=== PATIENT | female | born 1945 | race Caucasian/White ===

== ENCOUNTER 2022-09-22 20:07 | Observation (INO) | payer MEDICAID, MEDICARE, SELFPAY ==
[~2022-09-22] VITALS: Ht 170.2 cm; Wt 62.6 kg
[2022-09-22] MEDS ORDERED: NS 500 ML IV ONE (21:35)
[2022-09-22] MEDS ORDERED: METOPROLOL 5 MG/5 ML VIAL IV SCH (21:35)
[2022-09-22] MEDS ORDERED: METOPROLOL TART 25 MG TABLET PO ONE (21:35)
[2022-09-22 22:08] LABS: BASO % 0.3 % (0.0-1.0); EOS # 0.1 10^3/uL (0.0-0.5); EOS % 0.9 % (0.0-3.0); HEMATOCRIT 43.9 % (36.0-47.0); HEMOGLOBIN 14.7 g/dl (12.0-15.5); LYMPH # 2.8 10^3/uL (1.5-5.0); LYMPH % 29.2 % (24.0-44.0); MEAN CORPUSCULAR HEMOGLOBIN 30.4 pg (27.0-33.0); MEAN CORPUSCULAR HGB CONC 33.5 g/dl (32.0-36.5); MEAN CORPUSCULAR VOLUME 90.9 fl (80.0-96.0); MONO # 0.6 10^3/uL (0.0-0.8); MONO % 5.9 % (2.0-8.0); NEUTROPHILS % 63.5 % (36.0-66.0); PLATELET COUNT, AUTOMATED 255 10^3/uL (150-450); RED BLOOD COUNT 4.83 10^6/uL (4.00-5.40); WHITE BLOOD COUNT 9.5 10^3/uL (4.0-10.0)
[2022-09-22 22:23] LABS: CK-MB VALUE MASS 1.9 NG/ML (<3.6); ETHYL ALCOHOL (ETHANOL) < 0.003 % (0.000-0.010)
[2022-09-22 22:25] LABS: ALBUMIN 4.2 G/DL (3.2-5.2); ALKALINE PHOSPHATASE 81 U/L (46-116); ALT/SGPT 10 U/L (7.0-40); AST/SGOT 19 U/L (<34); BILIRUBIN,DIRECT 0.1 MG/DL (<0.4); BILIRUBIN,TOTAL 0.5 MG/DL (0.3-1.2); BLOOD UREA NITROGEN 14 MG/DL (9-23); CARBON DIOXIDE LEVEL 27 MMOL/L (20-31); CHLORIDE LEVEL 107 MMOL/L (98-107); CREATININE FOR GFR 0.88 MG/DL (0.55-1.30); GLOMERULAR FILTRATION RATE > 60.0 (>39); GLUCOSE, FASTING 106 MG/DL (74-106); POTASSIUM SERUM 3.4 MMOL/L (3.5-5.1); SODIUM LEVEL 142 MMOL/L (136-145); TOTAL PROTEIN 7.2 G/DL (5.7-8.2)
[2022-09-22 22:27] LABS: THYROID STIMULATING HORMONE 0.817 uIU/ML (0.55-4.78)
[2022-09-22 22:37] LABS: CPK CREATINE PHOSPHOKINASE 96 U/L (34-145); MB/CK RELATIVE INDEX 1.97 (< OR =4)
[2022-09-22 23:40] LABS: RSV AMPLIFICATION NEGATIVE (NEGATIVE)
[2022-09-22] MEDS ORDERED: AMLO2.5T3 PO (23:48)
[2022-09-22] MEDS ORDERED: POTA1TAB23 PO (23:48)
[2022-09-22] MEDS ORDERED: DONE5TAB82 PO (23:48)
[2022-09-22] MEDS ORDERED: SPIR-10 PO (23:48)
[2022-09-22] MEDS ORDERED: ATOR40TA75 PO (23:48)
[2022-09-22] MEDS ORDERED: LOSA50TA5 PO (23:48)
[2022-09-22] MEDS ORDERED: LABE300T55 PO (23:48)
[2022-09-22] MEDS ORDERED: CLON-412 PO (23:48)
[2022-09-22] MEDS ORDERED: HOME MED LIST COMPLETE! XX SCH (23:50)
[2022-09-23] MEDS ORDERED: amLODIPine 5 MG TAB PO ONE
[2022-09-23] MEDS: cloNIDine 0.1MG TABLET PO SCH ×3 (00:26→20:47)
[2022-09-23] MEDS ORDERED: cloNIDine 0.1MG TABLET PO ONE (01:05)
[2022-09-23] MEDS ORDERED: LOSARTAN 50MG TABLET PO SCH (09:00)
[2022-09-23] MEDS ORDERED: hydroCHLOROthiazide 12.5 MG CAPSULE PO SCH (09:00)
[2022-09-23] MEDS: ENOXAPARIN 40MG/0.4ML SYRINGE (J1650 PER 10MG) SC SCH (09:09)
[2022-09-23] MEDS: SPIRONOLACTONE 25 MG TAB PO SCH ×2 (09:12→20:46)
[2022-09-23] MEDS: LABETALOL 100MG TAB PO SCH ×2 (09:19→20:48)
[2022-09-23] MEDS ORDERED: OLANZapine INTRAMUSCULAR 10MG VIAL IM ONE ×2 (11:00→14:05)
[2022-09-23] MEDS: LOSARTAN 50MG TABLET PO SCH (12:00)
[2022-09-23] MEDS ORDERED: diphenhydrAMINE 50MG/ML VIAL IV ONE (12:30)
[2022-09-23 13:54] VITALS: BP 140/75; TEMP 97; O2SAT 98
[2022-09-23] MEDS ORDERED: diphenhydrAMINE 50MG/ML VIAL IM ONE (14:05)
[2022-09-23] MEDS ORDERED: POTASSIUM CHLORIDE 10% LIQ 20MEQ/15ML UDC PO ONE (15:00)
[2022-09-23 16:58] VITALS: BP 107/53; TEMP 97.6; O2SAT 98
[2022-09-23 20:00] VITALS: BP 104/60; TEMP 97.6; O2SAT 97
[2022-09-23] MEDS: ATORVASTATIN 20 MG TAB PO SCH (20:49)
[2022-09-23] MEDS: DONEPEZIL 5 MG TAB PO SCH (20:49)
[2022-09-24] VITALS: BP 112/58; TEMP 97.3; O2SAT 95
[2022-09-24 08:09] VITALS: BP 139/59; TEMP 97.5; O2SAT 93
[2022-09-24] MEDS: cloNIDine 0.1MG TABLET PO SCH ×2 (08:21→20:15)
[2022-09-24] MEDS: LABETALOL 100MG TAB PO SCH ×2 (08:22→20:14)
[2022-09-24] MEDS: ENOXAPARIN 40MG/0.4ML SYRINGE (J1650 PER 10MG) SC SCH (08:28)
[2022-09-24] MEDS: SPIRONOLACTONE 25 MG TAB PO SCH ×3 (08:30→20:15)
[2022-09-24] MEDS: QUEtiapine FUMARATE 25 MG TAB PO SCH ×3 (08:30→20:15)
[2022-09-24] MEDS ORDERED: OLANZapine 5 MG TAB PO SCH (09:00)
[2022-09-24] MEDS ORDERED: OLANZapine INTRAMUSCULAR 10MG VIAL IM ONE (09:55)
[2022-09-24 12:00] VITALS: BP 136/62; TEMP 98.6; O2SAT 97
[2022-09-24] MEDS: LOSARTAN 50MG TABLET PO SCH (12:00)
[2022-09-24 20:00] VITALS: BP 194/88; TEMP 97.2; O2SAT 97
[2022-09-24] MEDS: ATORVASTATIN 20 MG TAB PO SCH (20:13)
[2022-09-24] MEDS: DONEPEZIL 5 MG TAB PO SCH (20:15)
[2022-09-25 04:00] VITALS: BP 153/69; TEMP 98.4; O2SAT 95
[2022-09-25 08:00] VITALS: BP 189/84; TEMP 98.9; O2SAT 99
[2022-09-25] MEDS: SPIRONOLACTONE 25 MG TAB PO SCH ×2 (08:28→21:23)
[2022-09-25] MEDS: QUEtiapine FUMARATE 25 MG TAB PO SCH ×3 (08:29→21:23)
[2022-09-25] MEDS: LABETALOL 100MG TAB PO SCH ×2 (08:29→21:24)
[2022-09-25] MEDS: cloNIDine 0.1MG TABLET PO SCH ×2 (08:29→21:23)
[2022-09-25] MEDS: ENOXAPARIN 40MG/0.4ML SYRINGE (J1650 PER 10MG) SC SCH (08:29)
[2022-09-25] MEDS: OLANZapine INTRAMUSCULAR 10MG VIAL IM PRN (10:40)
[2022-09-25] MEDS: LOSARTAN 50MG TABLET PO SCH (12:32)
[2022-09-25 19:49] VITALS: BP 180/80; TEMP 96.2; O2SAT 97
[2022-09-25 20:05] VITALS: BP 180/80; TEMP 97; O2SAT 98
[2022-09-25 21:20] VITALS: BP 168/81
[2022-09-25] MEDS: DONEPEZIL 5 MG TAB PO SCH (21:23)
[2022-09-26] MEDS: QUEtiapine FUMARATE 25 MG TAB PO SCH ×4 (09:00→21:28)
[2022-09-26] MEDS: SPIRONOLACTONE 25 MG TAB PO SCH ×3 (09:00→21:28)
[2022-09-26] MEDS: cloNIDine 0.1MG TABLET PO SCH ×3 (09:00→21:28)
[2022-09-26] MEDS: LABETALOL 100MG TAB PO SCH ×3 (09:00→21:00)
[2022-09-26] MEDS: ENOXAPARIN 40MG/0.4ML SYRINGE (J1650 PER 10MG) SC SCH (09:51)
[2022-09-26] MEDS: LOSARTAN 50MG TABLET PO SCH (13:39)
[2022-09-26 15:35] VITALS: BP 145/69; TEMP 98.4; O2SAT 96
[2022-09-26 20:41] VITALS: BP 169/74; TEMP 98.1; O2SAT 95
[2022-09-26] MEDS: DONEPEZIL 5 MG TAB PO SCH (21:29)
[2022-09-27 07:19] VITALS: BP 144/71; TEMP 97.9; O2SAT 96
[2022-09-27] MEDS: ENOXAPARIN 40MG/0.4ML SYRINGE (J1650 PER 10MG) SC SCH (09:00)
[2022-09-27] MEDS: cloNIDine 0.1MG TABLET PO SCH ×2 (09:00→20:37)
[2022-09-27] MEDS: QUEtiapine FUMARATE 25 MG TAB PO SCH ×3 (09:00→20:37)
[2022-09-27] MEDS: LABETALOL 100MG TAB PO SCH ×2 (09:00→20:38)
[2022-09-27] MEDS: SPIRONOLACTONE 25 MG TAB PO SCH ×2 (09:00→20:37)
[2022-09-27] MEDS: LOSARTAN 50MG TABLET PO SCH (12:25)
[2022-09-27] MEDS: DONEPEZIL 5 MG TAB PO SCH (20:37)
[2022-09-27 21:30] VITALS: TEMP 98.4; O2SAT 97
[2022-09-27 22:30] VITALS: BP 155/63; TEMP 97.9; O2SAT 94
[2022-09-28] MEDS: ACETAMINOPHEN TAB 650MG DOSE (2X325MG) PO PRN (03:00)
[2022-09-28 06:10] VITALS: BP 141/59; TEMP 97.7; O2SAT 97
[2022-09-28] MEDS: LABETALOL 100MG TAB PO SCH ×2 (09:00→23:04)
[2022-09-28] MEDS: cloNIDine 0.1MG TABLET PO SCH ×2 (09:00→23:03)
[2022-09-28] MEDS: QUEtiapine FUMARATE 25 MG TAB PO SCH ×3 (09:00→23:04)
[2022-09-28] MEDS: SPIRONOLACTONE 25 MG TAB PO SCH ×2 (09:00→23:03)
[2022-09-28] MEDS: ENOXAPARIN 40MG/0.4ML SYRINGE (J1650 PER 10MG) SC SCH (09:00)
[2022-09-28] MEDS: LOSARTAN 50MG TABLET PO SCH (12:37)
[2022-09-28] MEDS: OLANZapine INTRAMUSCULAR 10MG VIAL IM PRN (14:42)
[2022-09-28 21:00] VITALS: BP 178/81
[2022-09-28] MEDS: DONEPEZIL 5 MG TAB PO SCH (23:03)
[2022-09-29 06:30] VITALS: BP 124/63; TEMP 97.9; O2SAT 97
[2022-09-29] MEDS: QUEtiapine FUMARATE 25 MG TAB PO SCH ×3 (09:00→20:09)
[2022-09-29] MEDS: ENOXAPARIN 40MG/0.4ML SYRINGE (J1650 PER 10MG) SC SCH (09:00)
[2022-09-29] MEDS: cloNIDine 0.1MG TABLET PO SCH ×2 (09:00→20:15)
[2022-09-29] MEDS: LABETALOL 100MG TAB PO SCH ×2 (09:00→20:15)
[2022-09-29] MEDS: SPIRONOLACTONE 25 MG TAB PO SCH ×2 (09:00→20:09)
[2022-09-29] MEDS: LOSARTAN 50MG TABLET PO SCH (12:00)
[2022-09-29] MEDS: DONEPEZIL 5 MG TAB PO SCH (20:09)
[2022-09-29] MEDS: ACETAMINOPHEN TAB 650MG DOSE (2X325MG) PO PRN (22:04)
[2022-09-30] MEDS: ENOXAPARIN 40MG/0.4ML SYRINGE (J1650 PER 10MG) SC SCH (09:00)
[2022-09-30] MEDS: SPIRONOLACTONE 25 MG TAB PO SCH ×2 (10:39→21:34)
[2022-09-30] MEDS: cloNIDine 0.1MG TABLET PO SCH ×2 (10:40→21:00)
[2022-09-30] MEDS: QUEtiapine FUMARATE 25 MG TAB PO SCH ×3 (10:40→21:34)
[2022-09-30] MEDS: LABETALOL 100MG TAB PO SCH ×2 (10:42→21:00)
[2022-09-30] MEDS: LOSARTAN 50MG TABLET PO SCH (13:30)
[2022-09-30] MEDS: DONEPEZIL 5 MG TAB PO SCH (21:00)
[2022-09-30 22:00] VITALS: BP 175/89; TEMP 97.7; O2SAT 94
[2022-10-01] MEDS: LABETALOL 100MG TAB PO SCH ×2 (08:47→21:00)
[2022-10-01] MEDS: QUEtiapine FUMARATE 25 MG TAB PO SCH ×3 (08:48→21:00)
[2022-10-01] MEDS: ENOXAPARIN 40MG/0.4ML SYRINGE (J1650 PER 10MG) SC SCH (08:48)
[2022-10-01] MEDS: cloNIDine 0.1MG TABLET PO SCH ×2 (08:48→21:00)
[2022-10-01] MEDS: SPIRONOLACTONE 25 MG TAB PO SCH ×2 (08:48→21:00)
[2022-10-01] MEDS: LOSARTAN 50MG TABLET PO SCH (12:00)
[2022-10-01] MEDS: DONEPEZIL 5 MG TAB PO SCH (21:00)
[2022-10-02] MEDS: SPIRONOLACTONE 25 MG TAB PO SCH ×3 (08:12→21:00)
[2022-10-02] MEDS: ENOXAPARIN 40MG/0.4ML SYRINGE (J1650 PER 10MG) SC SCH (08:12)
[2022-10-02] MEDS: cloNIDine 0.1MG TABLET PO SCH ×3 (08:12→21:00)
[2022-10-02] MEDS: QUEtiapine FUMARATE 25 MG TAB PO SCH ×4 (08:12→21:00)
[2022-10-02] MEDS: LABETALOL 100MG TAB PO SCH ×2 (08:12→19:17)
[2022-10-02 08:30] VITALS: BP 153/70; TEMP 97.8
[2022-10-02] MEDS: LOSARTAN 50MG TABLET PO SCH (14:01)
[2022-10-02 14:13] VITALS: BP 140/65
[2022-10-02] MEDS: DONEPEZIL 5 MG TAB PO SCH (19:16)
[2022-10-03 06:00] VITALS: BP 155/72; TEMP 97.7; O2SAT 93
[2022-10-03] MEDS: LABETALOL 100MG TAB PO SCH ×2 (07:10→21:00)
[2022-10-03] MEDS: cloNIDine 0.1MG TABLET PO SCH ×3 (07:10→21:56)
[2022-10-03] MEDS: SPIRONOLACTONE 25 MG TAB PO SCH ×3 (07:11→21:57)
[2022-10-03] MEDS: ENOXAPARIN 40MG/0.4ML SYRINGE (J1650 PER 10MG) SC SCH (07:11)
[2022-10-03] MEDS: QUEtiapine FUMARATE 25 MG TAB PO SCH ×4 (07:11→21:56)
[2022-10-03] MEDS: LOSARTAN 50MG TABLET PO SCH (12:00)
[2022-10-03] MEDS: DONEPEZIL 5 MG TAB PO SCH ×2 (21:00→21:56)
[2022-10-03 21:54] VITALS: BP 167/82
[2022-10-04 05:51] VITALS: BP 139/65; TEMP 97.2; O2SAT 98
[2022-10-04] MEDS: cloNIDine 0.1MG TABLET PO SCH ×2 (07:59→21:00)
[2022-10-04] MEDS: LABETALOL 100MG TAB PO SCH ×2 (08:00→21:00)
[2022-10-04] MEDS: SPIRONOLACTONE 25 MG TAB PO SCH ×2 (08:00→21:00)
[2022-10-04] MEDS: QUEtiapine FUMARATE 25 MG TAB PO SCH ×3 (08:00→20:59)
[2022-10-04] MEDS: ENOXAPARIN 40MG/0.4ML SYRINGE (J1650 PER 10MG) SC SCH (08:04)
[2022-10-04] MEDS: LOSARTAN 50MG TABLET PO SCH (12:00)
[2022-10-04 12:16] VITALS: BP 138/62
[2022-10-04] MEDS: DONEPEZIL 5 MG TAB PO SCH (20:59)
[2022-10-05 06:35] VITALS: BP 140/62; TEMP 98.1; O2SAT 96
[2022-10-05] MEDS: cloNIDine 0.1MG TABLET PO SCH ×2 (08:49→19:42)
[2022-10-05] MEDS: QUEtiapine FUMARATE 25 MG TAB PO SCH ×3 (08:49→19:41)
[2022-10-05] MEDS: SPIRONOLACTONE 25 MG TAB PO SCH ×2 (08:50→19:41)
[2022-10-05] MEDS: LABETALOL 100MG TAB PO SCH ×2 (08:52→19:42)
[2022-10-05] MEDS: ENOXAPARIN 40MG/0.4ML SYRINGE (J1650 PER 10MG) SC SCH (08:54)
[2022-10-05] MEDS: LOSARTAN 50MG TABLET PO SCH (12:00)
[2022-10-05 12:16] VITALS: BP 116/54
[2022-10-05] MEDS: DONEPEZIL 5 MG TAB PO SCH (19:41)
[2022-10-06 05:31] VITALS: BP 139/60; TEMP 97.7; O2SAT 98
[2022-10-06] MEDS: cloNIDine 0.1MG TABLET PO SCH ×2 (09:00→20:58)
[2022-10-06] MEDS: QUEtiapine FUMARATE 25 MG TAB PO SCH ×3 (09:02→20:58)
[2022-10-06] MEDS: SPIRONOLACTONE 25 MG TAB PO SCH ×2 (09:02→20:59)
[2022-10-06] MEDS: LABETALOL 100MG TAB PO SCH ×2 (09:03→20:59)
[2022-10-06] MEDS: ENOXAPARIN 40MG/0.4ML SYRINGE (J1650 PER 10MG) SC SCH (09:03)
[2022-10-06] MEDS: LOSARTAN 50MG TABLET PO SCH (12:00)
[2022-10-06] MEDS: DONEPEZIL 5 MG TAB PO SCH (21:00)
[2022-10-07 06:00] VITALS: BP 115/49; TEMP 97.3; O2SAT 94
[2022-10-07] MEDS: cloNIDine 0.1MG TABLET PO SCH (08:29)
[2022-10-07] MEDS: SPIRONOLACTONE 25 MG TAB PO SCH ×2 (08:29→21:23)
[2022-10-07] MEDS: LABETALOL 100MG TAB PO SCH ×2 (08:30→21:22)
[2022-10-07] MEDS: ENOXAPARIN 40MG/0.4ML SYRINGE (J1650 PER 10MG) SC SCH (08:31)
[2022-10-07] MEDS: QUEtiapine FUMARATE 25 MG TAB PO SCH ×3 (08:34→21:22)
[2022-10-07] MEDS: LOSARTAN 50MG TABLET PO SCH (11:11)
[2022-10-07] MEDS: DONEPEZIL 5 MG TAB PO SCH (21:22)
[2022-10-08 05:04] VITALS: BP 144/60; TEMP 97.9; O2SAT 96
[2022-10-08] MEDS: ENOXAPARIN 40MG/0.4ML SYRINGE (J1650 PER 10MG) SC SCH (09:00)
[2022-10-08] MEDS: LOSARTAN 50MG TABLET PO SCH (10:17)
[2022-10-08] MEDS: LABETALOL 100MG TAB PO SCH ×2 (10:18→20:02)
[2022-10-08] MEDS: SPIRONOLACTONE 25 MG TAB PO SCH ×2 (10:18→20:01)
[2022-10-08] MEDS: QUEtiapine FUMARATE 25 MG TAB PO SCH ×3 (10:18→20:01)
[2022-10-08 19:52] VITALS: BP 175/81; O2SAT 98
[2022-10-08] MEDS: DONEPEZIL 5 MG TAB PO SCH (20:01)
[2022-10-09 06:00] VITALS: BP 184/81; TEMP 97.7; O2SAT 97
[2022-10-09] MEDS: LABETALOL 100MG TAB PO SCH ×2 (09:55→19:54)
[2022-10-09] MEDS: ENOXAPARIN 40MG/0.4ML SYRINGE (J1650 PER 10MG) SC SCH (09:55)
[2022-10-09] MEDS: QUEtiapine FUMARATE 25 MG TAB PO SCH ×3 (09:55→19:53)
[2022-10-09] MEDS: SPIRONOLACTONE 25 MG TAB PO SCH ×2 (09:55→19:54)
[2022-10-09] MEDS: LOSARTAN 50MG TABLET PO SCH (16:34)
[2022-10-09] MEDS: DONEPEZIL 5 MG TAB PO SCH (19:53)
[2022-10-10 04:00] VITALS: BP 147/78; TEMP 97.5; O2SAT 99
[2022-10-10] MEDS: SPIRONOLACTONE 25 MG TAB PO SCH ×2 (09:06→20:31)
[2022-10-10] MEDS: QUEtiapine FUMARATE 25 MG TAB PO SCH ×3 (09:06→20:30)
[2022-10-10] MEDS: LABETALOL 100MG TAB PO SCH ×2 (09:06→19:58)
[2022-10-10] MEDS: ENOXAPARIN 40MG/0.4ML SYRINGE (J1650 PER 10MG) SC SCH (09:07)
[2022-10-10] MEDS: LOSARTAN 50MG TABLET PO SCH (12:11)
[2022-10-10] MEDS: OLANZapine INTRAMUSCULAR 10MG VIAL IM PRN (16:28)
[2022-10-10] MEDS: DONEPEZIL 5 MG TAB PO SCH (20:30)
[2022-10-11 06:00] VITALS: BP 142/65; TEMP 97.9; O2SAT 95
[2022-10-11] MEDS: SPIRONOLACTONE 25 MG TAB PO SCH ×2 (08:39→19:30)
[2022-10-11] MEDS: LABETALOL 100MG TAB PO SCH ×2 (08:40→19:30)
[2022-10-11] MEDS: QUEtiapine FUMARATE 25 MG TAB PO SCH ×3 (08:40→17:12)
[2022-10-11] MEDS: ENOXAPARIN 40MG/0.4ML SYRINGE (J1650 PER 10MG) SC SCH (08:41)
[2022-10-11] MEDS: LOSARTAN 50MG TABLET PO SCH (12:08)
[2022-10-11] MEDS: DONEPEZIL 5 MG TAB PO SCH (19:30)
[2022-10-12 06:30] VITALS: BP 144/64; TEMP 97.9; O2SAT 99
[2022-10-12] MEDS: SPIRONOLACTONE 25 MG TAB PO SCH ×2 (08:36→11:23)
[2022-10-12] MEDS: LABETALOL 100MG TAB PO SCH ×2 (08:37→19:54)
[2022-10-12] MEDS: ENOXAPARIN 40MG/0.4ML SYRINGE (J1650 PER 10MG) SC SCH (08:37)
[2022-10-12] MEDS: QUEtiapine FUMARATE 25 MG TAB PO SCH ×3 (08:37→17:45)
[2022-10-12] MEDS: LOSARTAN 50MG TABLET PO SCH (11:21)
[2022-10-12] MEDS: DONEPEZIL 5 MG TAB PO SCH (17:46)
[2022-10-13] MEDS ORDERED: QUET1TAB17 PO (08:31)
[2022-10-13] MEDS: QUEtiapine FUMARATE 25 MG TAB PO SCH ×2 (08:34→17:09)
[2022-10-13] MEDS: ENOXAPARIN 40MG/0.4ML SYRINGE (J1650 PER 10MG) SC SCH (08:35)
[2022-10-13] MEDS: SPIRONOLACTONE 25 MG TAB PO SCH ×2 (08:35→21:49)
[2022-10-13] MEDS: LABETALOL 100MG TAB PO SCH ×2 (08:36→21:49)
[2022-10-13] MEDS: OLANZapine INTRAMUSCULAR 10MG VIAL IM PRN (09:20)
[2022-10-13] MEDS: LOSARTAN 50MG TABLET PO SCH (11:38)
[2022-10-13] MEDS: DONEPEZIL 5 MG TAB PO SCH (21:49)
[2022-10-14] MEDS: QUEtiapine FUMARATE 25 MG TAB PO SCH ×2 (08:38→17:13)
[2022-10-14] MEDS: LABETALOL 100MG TAB PO SCH ×2 (08:39→20:33)
[2022-10-14] MEDS: ENOXAPARIN 40MG/0.4ML SYRINGE (J1650 PER 10MG) SC SCH (08:40)
[2022-10-14] MEDS: SPIRONOLACTONE 25 MG TAB PO SCH ×2 (08:40→20:33)
[2022-10-14] MEDS: LOSARTAN 50MG TABLET PO SCH (13:18)
[2022-10-14 20:32] VITALS: BP 143/67
[2022-10-14] MEDS: DONEPEZIL 5 MG TAB PO SCH (20:33)
[2022-10-14 20:39] VITALS: BP 155/61
[2022-10-15 06:00] VITALS: BP 142/63; TEMP 97.7; O2SAT 96
[2022-10-15] MEDS: ENOXAPARIN 40MG/0.4ML SYRINGE (J1650 PER 10MG) SC SCH (09:00)
[2022-10-15] MEDS: QUEtiapine FUMARATE 25 MG TAB PO SCH ×2 (09:38→17:52)
[2022-10-15] MEDS: SPIRONOLACTONE 25 MG TAB PO SCH ×2 (09:38→20:08)
[2022-10-15] MEDS: LABETALOL 100MG TAB PO SCH ×2 (09:39→20:07)
[2022-10-15] MEDS: LOSARTAN 50MG TABLET PO SCH (11:50)
[2022-10-15] MEDS ORDERED: guaiFENesin SYRUP 200MG 10ML UDC PO PRN (12:00)
[2022-10-15] MEDS ORDERED: CEPACOL LOZENGE PO PRN (12:00)
[2022-10-15 17:01] VITALS: TEMP 101.7
[2022-10-15 17:06] VITALS: TEMP 101.3
[2022-10-15 20:07] LABS: BASO % 0.1 % (0.0-1.0); EOS % 0.3 % (0.0-3.0); HEMATOCRIT 41.1 % (36.0-47.0); HEMOGLOBIN 13.5 g/dl (12.0-15.5); LYMPH # 1.4 10^3/uL (1.5-5.0); LYMPH % 14.8 % (24.0-44.0); MEAN CORPUSCULAR HEMOGLOBIN 30.7 pg (27.0-33.0); MEAN CORPUSCULAR HGB CONC 32.8 g/dl (32.0-36.5); MEAN CORPUSCULAR VOLUME 93.4 fl (80.0-96.0); MONO # 0.8 10^3/uL (0.0-0.8); MONO % 8.1 % (2.0-8.0); NEUTROPHILS # 7.1 10^3/uL (1.5-8.5); NEUTROPHILS % 76.3 % (36.0-66.0); PLATELET COUNT, AUTOMATED 217 10^3/uL (150-450); WHITE BLOOD COUNT 9.3 10^3/uL (4.0-10.0)
[2022-10-15] MEDS: ACETAMINOPHEN TAB 650MG DOSE (2X325MG) PO PRN (20:07)
[2022-10-15] MEDS: DONEPEZIL 5 MG TAB PO SCH (20:08)
[2022-10-15 20:30] LABS: ALBUMIN 3.6 G/DL (3.2-5.2); ALKALINE PHOSPHATASE 137 U/L (46-116); ALT/SGPT 14 U/L (7.0-40); AST/SGOT 12 U/L (<34); BILIRUBIN,TOTAL 0.5 MG/DL (0.3-1.2); BLOOD UREA NITROGEN 28 MG/DL (9-23); CALCIUM LEVEL 9.1 MG/DL (8.3-10.6); CARBON DIOXIDE LEVEL 29 MMOL/L (20-31); CHLORIDE LEVEL 99 MMOL/L (98-107); CREATININE FOR GFR 0.85 MG/DL (0.55-1.30); GLOMERULAR FILTRATION RATE > 60.0 (>39); GLUCOSE, FASTING 107 MG/DL (74-106); POTASSIUM SERUM 4.3 MMOL/L (3.5-5.1); SODIUM LEVEL 137 MMOL/L (136-145); TOTAL PROTEIN 6.9 G/DL (5.7-8.2)
[2022-10-15 20:36] LABS: PROCALCITONIN 0.06 ng/ml
[2022-10-15 21:50] VITALS: TEMP 99.3
[2022-10-16 06:00] VITALS: BP 131/53; TEMP 98.1; O2SAT 96
[2022-10-16] MEDS: QUEtiapine FUMARATE 25 MG TAB PO SCH ×2 (08:20→17:10)
[2022-10-16] MEDS: LABETALOL 100MG TAB PO SCH ×2 (08:21→20:10)
[2022-10-16] MEDS: SPIRONOLACTONE 25 MG TAB PO SCH ×2 (08:21→20:11)
[2022-10-16] MEDS: ENOXAPARIN 40MG/0.4ML SYRINGE (J1650 PER 10MG) SC SCH (08:21)
[2022-10-16] MEDS: LOSARTAN 50MG TABLET PO SCH (11:33)
[2022-10-16] MEDS: LevoFLOXacin 750 MG TABLET PO SCH (17:10)
[2022-10-16 20:09] VITALS: BP 124/52; TEMP 97.9
[2022-10-16] MEDS: DONEPEZIL 5 MG TAB PO SCH (20:10)
[2022-10-17 05:47] VITALS: BP 121/52; TEMP 97.9; O2SAT 98
[2022-10-17 05:58] LABS: BASO % 0.2 % (0.0-1.0); EOS # 0.1 10^3/uL (0.0-0.5); HEMATOCRIT 38.7 % (36.0-47.0); HEMOGLOBIN 12.9 g/dl (12.0-15.5); LYMPH # 2.1 10^3/uL (1.5-5.0); LYMPH % 36.3 % (24.0-44.0); MEAN CORPUSCULAR HEMOGLOBIN 30.8 pg (27.0-33.0); MEAN CORPUSCULAR HGB CONC 33.3 g/dl (32.0-36.5); MEAN CORPUSCULAR VOLUME 92.4 fl (80.0-96.0); MONO # 0.5 10^3/uL (0.0-0.8); MONO % 9.2 % (2.0-8.0); NEUTROPHILS # 3.1 10^3/uL (1.5-8.5); PLATELET COUNT, AUTOMATED 199 10^3/uL (150-450); RED BLOOD COUNT 4.19 10^6/uL (4.00-5.40); WHITE BLOOD COUNT 5.8 10^3/uL (4.0-10.0)
[2022-10-17 06:25] LABS: BLOOD UREA NITROGEN 30 MG/DL (9-23); CALCIUM LEVEL 8.9 MG/DL (8.3-10.6); CARBON DIOXIDE LEVEL 27 MMOL/L (20-31); CHLORIDE LEVEL 102 MMOL/L (98-107); CREATININE FOR GFR 0.82 MG/DL (0.55-1.30); GLOMERULAR FILTRATION RATE > 60.0 (>39); GLUCOSE, FASTING 94 MG/DL (74-106); MAGNESIUM LEVEL 1.8 MG/DL (1.8-2.4); SODIUM LEVEL 139 MMOL/L (136-145)
[2022-10-17 06:31] LABS: PROCALCITONIN 0.15 ng/ml
[2022-10-17] MEDS: SPIRONOLACTONE 25 MG TAB PO SCH ×2 (08:53→21:00)
[2022-10-17] MEDS: QUEtiapine FUMARATE 25 MG TAB PO SCH ×2 (08:53→17:00)
[2022-10-17] MEDS: ENOXAPARIN 40MG/0.4ML SYRINGE (J1650 PER 10MG) SC SCH (08:53)
[2022-10-17] MEDS: LABETALOL 100MG TAB PO SCH ×2 (08:54→21:00)
[2022-10-17] MEDS: LOSARTAN 50MG TABLET PO SCH (11:20)
[2022-10-17] MEDS: LevoFLOXacin 750 MG TABLET PO SCH (17:00)
[2022-10-17] MEDS: DONEPEZIL 5 MG TAB PO SCH (21:00)
[2022-10-18 05:40] VITALS: BP 166/75; TEMP 97.2; O2SAT 94
[2022-10-18] MEDS: ENOXAPARIN 40MG/0.4ML SYRINGE (J1650 PER 10MG) SC SCH (09:00)
[2022-10-18] MEDS: SPIRONOLACTONE 25 MG TAB PO SCH ×3 (10:18→22:00)
[2022-10-18] MEDS: LABETALOL 100MG TAB PO SCH ×3 (10:19→21:59)
[2022-10-18] MEDS: QUEtiapine FUMARATE 25 MG TAB PO SCH ×2 (10:19→17:41)
[2022-10-18] MEDS: LOSARTAN 50MG TABLET PO SCH (12:43)
[2022-10-18] MEDS: OLANZapine INTRAMUSCULAR 10MG VIAL IM PRN (16:47)
[2022-10-18] MEDS: LevoFLOXacin 750 MG TABLET PO SCH (17:41)
[2022-10-18] MEDS: DONEPEZIL 5 MG TAB PO SCH (21:59)
[2022-10-19 06:00] VITALS: BP 132/59; TEMP 96.6; O2SAT 96
[2022-10-19] MEDS: QUEtiapine FUMARATE 25 MG TAB PO SCH ×2 (09:12→17:53)
[2022-10-19] MEDS: SPIRONOLACTONE 25 MG TAB PO SCH ×2 (09:12→20:13)
[2022-10-19] MEDS: ENOXAPARIN 40MG/0.4ML SYRINGE (J1650 PER 10MG) SC SCH (09:13)
[2022-10-19] MEDS: LABETALOL 100MG TAB PO SCH ×2 (09:13→20:14)
[2022-10-19] MEDS: LOSARTAN 50MG TABLET PO SCH (12:00)
[2022-10-19] MEDS: LevoFLOXacin 750 MG TABLET PO SCH (17:53)
[2022-10-19] MEDS: DONEPEZIL 5 MG TAB PO SCH (20:15)
[2022-10-20 06:30] VITALS: BP 132/65; TEMP 97.7; O2SAT 99
[2022-10-20] MEDS: QUEtiapine FUMARATE 25 MG TAB PO SCH ×2 (09:32→18:04)
[2022-10-20] MEDS: SPIRONOLACTONE 25 MG TAB PO SCH ×2 (09:33→19:50)
[2022-10-20] MEDS: LABETALOL 100MG TAB PO SCH ×2 (09:33→19:51)
[2022-10-20] MEDS: ENOXAPARIN 40MG/0.4ML SYRINGE (J1650 PER 10MG) SC SCH (09:33)
[2022-10-20] MEDS: LOSARTAN 50MG TABLET PO SCH (11:52)
[2022-10-20] MEDS: LevoFLOXacin 750 MG TABLET PO SCH (18:04)
[2022-10-20] MEDS: DONEPEZIL 5 MG TAB PO SCH (19:51)
[2022-10-21 05:45] VITALS: BP 159/68; TEMP 98.6; O2SAT 97
[2022-10-21] MEDS: QUEtiapine FUMARATE 25 MG TAB PO SCH ×2 (09:49→18:10)
[2022-10-21] MEDS: LABETALOL 100MG TAB PO SCH ×2 (09:50→20:47)
[2022-10-21] MEDS: SPIRONOLACTONE 25 MG TAB PO SCH ×2 (09:50→20:47)
[2022-10-21] MEDS: ENOXAPARIN 40MG/0.4ML SYRINGE (J1650 PER 10MG) SC SCH (09:52)
[2022-10-21] MEDS: LOSARTAN 50MG TABLET PO SCH (12:00)
[2022-10-21] MEDS: DONEPEZIL 5 MG TAB PO SCH (20:47)
[2022-10-22 06:09] VITALS: BP 124/60; TEMP 99.1; O2SAT 96
[2022-10-22] MEDS: SPIRONOLACTONE 25 MG TAB PO SCH ×2 (09:13→20:29)
[2022-10-22] MEDS: LABETALOL 100MG TAB PO SCH ×2 (09:13→20:28)
[2022-10-22] MEDS: QUEtiapine FUMARATE 25 MG TAB PO SCH ×2 (09:13→17:21)
[2022-10-22] MEDS: ENOXAPARIN 40MG/0.4ML SYRINGE (J1650 PER 10MG) SC SCH (09:14)
[2022-10-22] MEDS: LOSARTAN 50MG TABLET PO SCH (12:07)
[2022-10-22] MEDS: DONEPEZIL 5 MG TAB PO SCH (20:29)
[2022-10-23 05:34] VITALS: BP 143/64; TEMP 97.3; O2SAT 97
[2022-10-23] MEDS: LABETALOL 100MG TAB PO SCH ×2 (10:23→20:37)
[2022-10-23] MEDS: QUEtiapine FUMARATE 25 MG TAB PO SCH ×2 (10:23→17:23)
[2022-10-23] MEDS: SPIRONOLACTONE 25 MG TAB PO SCH ×2 (10:23→20:37)
[2022-10-23] MEDS: ENOXAPARIN 40MG/0.4ML SYRINGE (J1650 PER 10MG) SC SCH (10:24)
[2022-10-23] MEDS: LOSARTAN 50MG TABLET PO SCH (12:10)
[2022-10-23] MEDS: CLOTRIMAZOLE 10 MG TROCHE PO SCH ×3 (12:10→20:39)
[2022-10-23] MEDS: DONEPEZIL 5 MG TAB PO SCH (20:39)
[2022-10-24] MEDS: CLOTRIMAZOLE 10 MG TROCHE PO SCH ×2 (06:00→09:11)
[2022-10-24 06:48] VITALS: BP 142/58; TEMP 98.1; O2SAT 96
[2022-10-24] MEDS: NYSTATIN 500,000U/5ML SUSP UDC SS SCH ×4 (09:00→21:08)
[2022-10-24] MEDS: QUEtiapine FUMARATE 25 MG TAB PO SCH ×2 (09:11→17:08)
[2022-10-24] MEDS: LABETALOL 100MG TAB PO SCH ×2 (09:11→21:08)
[2022-10-24] MEDS: SPIRONOLACTONE 25 MG TAB PO SCH ×2 (09:12→21:07)
[2022-10-24] MEDS: ENOXAPARIN 40MG/0.4ML SYRINGE (J1650 PER 10MG) SC SCH (09:12)
[2022-10-24] MEDS: LOSARTAN 50MG TABLET PO SCH (12:00)
[2022-10-24 12:09] VITALS: BP 102/64
[2022-10-24 12:15] VITALS: BP 101/55; TEMP 97.7; O2SAT 92
[2022-10-24 20:44] VITALS: BP 140/69
[2022-10-24] MEDS: DONEPEZIL 5 MG TAB PO SCH (21:07)
[2022-10-25 06:00] VITALS: BP 123/56; TEMP 97.9; O2SAT 98
[2022-10-25] MEDS: ENOXAPARIN 40MG/0.4ML SYRINGE (J1650 PER 10MG) SC SCH (09:00)
[2022-10-25] MEDS: SPIRONOLACTONE 25 MG TAB PO SCH ×2 (09:08→20:55)
[2022-10-25] MEDS: NYSTATIN 500,000U/5ML SUSP UDC SS SCH ×4 (09:08→20:52)
[2022-10-25] MEDS: QUEtiapine FUMARATE 25 MG TAB PO SCH ×2 (09:09→17:29)
[2022-10-25] MEDS: LABETALOL 100MG TAB PO SCH ×2 (09:10→20:55)
[2022-10-25] MEDS: LOSARTAN 50MG TABLET PO SCH (11:38)
[2022-10-25] MEDS: SENOKOT S TAB PO PRN (20:52)
[2022-10-25] MEDS: DONEPEZIL 5 MG TAB PO SCH (20:52)
[2022-10-26 05:37] VITALS: BP 132/58; TEMP 96.8; O2SAT 97
[2022-10-26] MEDS: ENOXAPARIN 40MG/0.4ML SYRINGE (J1650 PER 10MG) SC SCH (09:00)
[2022-10-26] MEDS: SPIRONOLACTONE 25 MG TAB PO SCH ×2 (09:00→19:57)
[2022-10-26] MEDS: NYSTATIN 500,000U/5ML SUSP UDC SS SCH ×4 (09:00→19:58)
[2022-10-26] MEDS: LABETALOL 100MG TAB PO SCH ×2 (09:00→19:57)
[2022-10-26] MEDS: QUEtiapine FUMARATE 25 MG TAB PO SCH ×2 (09:00→18:36)
[2022-10-26] MEDS: LOSARTAN 50MG TABLET PO SCH (12:00)
[2022-10-26] MEDS: OLANZapine INTRAMUSCULAR 10MG VIAL IM PRN (15:43)
[2022-10-26] MEDS: DONEPEZIL 5 MG TAB PO SCH (19:58)
[2022-10-27 06:00] VITALS: BP 135/57; TEMP 97.2; O2SAT 97
[2022-10-27] MEDS: NYSTATIN 500,000U/5ML SUSP UDC SS SCH ×4 (08:28→20:25)
[2022-10-27] MEDS: QUEtiapine FUMARATE 25 MG TAB PO SCH ×2 (08:28→17:13)
[2022-10-27] MEDS: SPIRONOLACTONE 25 MG TAB PO SCH ×2 (08:29→20:25)
[2022-10-27] MEDS: ENOXAPARIN 40MG/0.4ML SYRINGE (J1650 PER 10MG) SC SCH (08:32)
[2022-10-27] MEDS: LABETALOL 100MG TAB PO SCH ×2 (08:32→20:25)
[2022-10-27] MEDS: LOSARTAN 50MG TABLET PO SCH (11:31)
[2022-10-27 20:00] VITALS: BP 124/64
[2022-10-27] MEDS: DONEPEZIL 5 MG TAB PO SCH (20:24)
[2022-10-28 06:00] VITALS: BP 105/46; TEMP 97.9; O2SAT 99
[2022-10-28 06:47] VITALS: BP 100/52
[2022-10-28] MEDS: SPIRONOLACTONE 25 MG TAB PO SCH ×3 (07:19→20:27)
[2022-10-28] MEDS: LABETALOL 100MG TAB PO SCH ×3 (07:24→20:28)
[2022-10-28] MEDS: QUEtiapine FUMARATE 25 MG TAB PO SCH ×2 (09:10→17:59)
[2022-10-28] MEDS: NYSTATIN 500,000U/5ML SUSP UDC SS SCH ×4 (09:10→20:27)
[2022-10-28] MEDS: ENOXAPARIN 40MG/0.4ML SYRINGE (J1650 PER 10MG) SC SCH (09:18)
[2022-10-28 12:52] VITALS: BP 142/70
[2022-10-28] MEDS: LOSARTAN 50MG TABLET PO SCH (12:53)
[2022-10-28] MEDS: SENOKOT S TAB PO PRN (20:27)
[2022-10-28] MEDS: DONEPEZIL 5 MG TAB PO SCH (20:27)
[2022-10-29 06:29] VITALS: BP 136/51; TEMP 97.7; O2SAT 99
[2022-10-29] MEDS: QUEtiapine FUMARATE 25 MG TAB PO SCH ×2 (08:23→17:24)
[2022-10-29] MEDS: NYSTATIN 500,000U/5ML SUSP UDC SS SCH ×4 (08:23→20:35)
[2022-10-29] MEDS: LABETALOL 100MG TAB PO SCH ×2 (08:24→20:35)
[2022-10-29] MEDS: ENOXAPARIN 40MG/0.4ML SYRINGE (J1650 PER 10MG) SC SCH (08:24)
[2022-10-29] MEDS: SPIRONOLACTONE 25 MG TAB PO SCH ×2 (08:25→20:34)
[2022-10-29 12:16] VITALS: BP_SYST 60
[2022-10-29] MEDS: LOSARTAN 50MG TABLET PO SCH (12:18)
[2022-10-29] MEDS: DONEPEZIL 5 MG TAB PO SCH (20:34)
[2022-10-29] MEDS: SENOKOT S TAB PO PRN (20:35)
[2022-10-30 05:51] VITALS: BP 118/47; TEMP 97.7; O2SAT 98
[2022-10-30] MEDS: SPIRONOLACTONE 25 MG TAB PO SCH ×2 (09:00→19:27)
[2022-10-30] MEDS: LABETALOL 100MG TAB PO SCH ×2 (09:00→19:29)
[2022-10-30] MEDS: NYSTATIN 500,000U/5ML SUSP UDC SS SCH ×4 (09:01→19:31)
[2022-10-30] MEDS: QUEtiapine FUMARATE 25 MG TAB PO SCH ×2 (09:01→18:33)
[2022-10-30] MEDS: ENOXAPARIN 40MG/0.4ML SYRINGE (J1650 PER 10MG) SC SCH (09:01)
[2022-10-30] MEDS: LOSARTAN 50MG TABLET PO SCH (12:41)
[2022-10-30] MEDS: DONEPEZIL 5 MG TAB PO SCH (19:28)
[2022-10-31 06:00] VITALS: BP 129/47; TEMP 97.7; O2SAT 98
[2022-10-31] MEDS: NYSTATIN 500,000U/5ML SUSP UDC SS SCH ×4 (08:30→20:53)
[2022-10-31] MEDS: SPIRONOLACTONE 25 MG TAB PO SCH ×2 (08:30→20:53)
[2022-10-31] MEDS: QUEtiapine FUMARATE 25 MG TAB PO SCH ×2 (08:31→17:49)
[2022-10-31] MEDS: LABETALOL 100MG TAB PO SCH ×2 (08:32→20:56)
[2022-10-31] MEDS: ENOXAPARIN 40MG/0.4ML SYRINGE (J1650 PER 10MG) SC SCH (08:32)
[2022-10-31] MEDS: LOSARTAN 50MG TABLET PO SCH (11:50)
[2022-10-31] MEDS: DONEPEZIL 5 MG TAB PO SCH (20:57)
[2022-11-01 06:00] VITALS: BP 134/52; TEMP 97.9; O2SAT 97
[2022-11-01] MEDS: SPIRONOLACTONE 25 MG TAB PO SCH ×2 (08:19→19:52)
[2022-11-01] MEDS: QUEtiapine FUMARATE 25 MG TAB PO SCH ×2 (08:19→17:09)
[2022-11-01] MEDS: ENOXAPARIN 40MG/0.4ML SYRINGE (J1650 PER 10MG) SC SCH (08:19)
[2022-11-01] MEDS: LABETALOL 100MG TAB PO SCH ×2 (08:20→19:53)
[2022-11-01] MEDS: NYSTATIN 500,000U/5ML SUSP UDC SS SCH ×4 (08:20→19:55)
[2022-11-01] MEDS: LOSARTAN 50MG TABLET PO SCH (12:40)
[2022-11-01] MEDS: DONEPEZIL 5 MG TAB PO SCH (19:53)
[2022-11-02 05:49] VITALS: BP 124/57; TEMP 97.7; O2SAT 99
[2022-11-02] MEDS: ENOXAPARIN 40MG/0.4ML SYRINGE (J1650 PER 10MG) SC SCH (09:00)
[2022-11-02] MEDS: NYSTATIN 500,000U/5ML SUSP UDC SS SCH ×4 (09:14→21:15)
[2022-11-02] MEDS: QUEtiapine FUMARATE 25 MG TAB PO SCH ×2 (09:14→17:16)
[2022-11-02] MEDS: LABETALOL 100MG TAB PO SCH ×2 (09:15→21:17)
[2022-11-02] MEDS: SPIRONOLACTONE 25 MG TAB PO SCH ×2 (09:15→21:17)
[2022-11-02] MEDS: LOSARTAN 50MG TABLET PO SCH (12:00)
[2022-11-02] MEDS: DONEPEZIL 5 MG TAB PO SCH (21:18)
[2022-11-03 06:00] VITALS: BP 133/59; TEMP 97.5; O2SAT 100
[2022-11-03] MEDS: ENOXAPARIN 40MG/0.4ML SYRINGE (J1650 PER 10MG) SC SCH ×2 (09:00→10:15)
[2022-11-03] MEDS: LABETALOL 100MG TAB PO SCH ×2 (10:15→19:44)
[2022-11-03] MEDS: QUEtiapine FUMARATE 25 MG TAB PO SCH ×2 (10:16→18:05)
[2022-11-03] MEDS: SPIRONOLACTONE 25 MG TAB PO SCH ×2 (10:16→20:36)
[2022-11-03] MEDS: LOSARTAN 50MG TABLET PO SCH (12:02)
[2022-11-03 19:44] VITALS: BP 94/52
[2022-11-03] MEDS: DONEPEZIL 5 MG TAB PO SCH (20:38)
[2022-11-03 20:41] VITALS: BP 106/44
[2022-11-04 05:58] VITALS: BP 134/60; TEMP 97.7; O2SAT 98
[2022-11-04] MEDS: SPIRONOLACTONE 25 MG TAB PO SCH ×2 (10:07→20:17)
[2022-11-04] MEDS: ENOXAPARIN 40MG/0.4ML SYRINGE (J1650 PER 10MG) SC SCH ×2 (10:08→10:14)
[2022-11-04] MEDS: QUEtiapine FUMARATE 25 MG TAB PO SCH ×2 (10:08→18:16)
[2022-11-04] MEDS: LABETALOL 100MG TAB PO SCH ×2 (10:09→20:17)
[2022-11-04] MEDS: LOSARTAN 50MG TABLET PO SCH (12:05)
[2022-11-04] MEDS: DONEPEZIL 5 MG TAB PO SCH (20:16)
[2022-11-05 05:28] VITALS: BP 141/51; TEMP 97.5; O2SAT 96
[2022-11-05] MEDS: QUEtiapine FUMARATE 25 MG TAB PO SCH ×4 (09:15→20:28)
[2022-11-05] MEDS: ENOXAPARIN 40MG/0.4ML SYRINGE (J1650 PER 10MG) SC SCH (09:17)
[2022-11-05] MEDS: LABETALOL 100MG TAB PO SCH ×2 (09:20→20:28)
[2022-11-05] MEDS: SPIRONOLACTONE 25 MG TAB PO SCH ×2 (09:21→20:28)
[2022-11-05 11:02] VITALS: BP 117/65
[2022-11-05] MEDS: LOSARTAN 50MG TABLET PO SCH (11:02)
[2022-11-05] MEDS: DONEPEZIL 5 MG TAB PO SCH (20:28)
[2022-11-06 06:00] VITALS: BP 134/59; TEMP 97.7; O2SAT 99
[2022-11-06] MEDS: QUEtiapine FUMARATE 25 MG TAB PO SCH ×2 (08:43→17:29)
[2022-11-06] MEDS: LABETALOL 100MG TAB PO SCH ×2 (08:44→19:59)
[2022-11-06] MEDS: SPIRONOLACTONE 25 MG TAB PO SCH ×2 (08:44→20:04)
[2022-11-06] MEDS: LOSARTAN 50MG TABLET PO SCH (12:18)
[2022-11-06 20:00] VITALS: BP 98/43
[2022-11-06] MEDS: DONEPEZIL 5 MG TAB PO SCH (20:04)
[2022-11-07 06:00] VITALS: BP 141/57; TEMP 97; O2SAT 95
[2022-11-07] MEDS: QUEtiapine FUMARATE 25 MG TAB PO SCH ×2 (09:00→18:24)
[2022-11-07] MEDS: SPIRONOLACTONE 25 MG TAB PO SCH ×2 (09:00→20:00)
[2022-11-07] MEDS: LABETALOL 100MG TAB PO SCH ×2 (09:00→20:00)
[2022-11-07] MEDS: LOSARTAN 50MG TABLET PO SCH (14:28)
[2022-11-07] MEDS: DONEPEZIL 5 MG TAB PO SCH (20:00)
[2022-11-08 06:00] VITALS: BP 136/64; TEMP 97.9; O2SAT 96
[2022-11-08] MEDS: SPIRONOLACTONE 25 MG TAB PO SCH ×2 (10:23→21:00)
[2022-11-08] MEDS: QUEtiapine FUMARATE 25 MG TAB PO SCH ×2 (10:23→17:24)
[2022-11-08] MEDS: LABETALOL 100MG TAB PO SCH ×2 (10:24→21:00)
[2022-11-08] MEDS: LOSARTAN 50MG TABLET PO SCH (12:00)
[2022-11-08] MEDS: DONEPEZIL 5 MG TAB PO SCH (21:13)
[2022-11-09 05:18] VITALS: BP 121/57; TEMP 97.3; O2SAT 96
[2022-11-09] MEDS: QUEtiapine FUMARATE 25 MG TAB PO SCH ×2 (09:47→17:20)
[2022-11-09] MEDS: LABETALOL 100MG TAB PO SCH ×2 (09:48→19:51)
[2022-11-09] MEDS: SPIRONOLACTONE 25 MG TAB PO SCH ×2 (09:48→19:50)
[2022-11-09] MEDS: LOSARTAN 50MG TABLET PO SCH (12:28)
[2022-11-09] MEDS: DONEPEZIL 5 MG TAB PO SCH (19:50)
[2022-11-10 05:05] VITALS: BP 138/59; TEMP 98.6; O2SAT 96
[2022-11-10 09:55] VITALS: BP 135/68
[2022-11-10] MEDS: SPIRONOLACTONE 25 MG TAB PO SCH ×2 (09:56→19:55)
[2022-11-10] MEDS: LABETALOL 100MG TAB PO SCH ×2 (09:56→19:55)
[2022-11-10] MEDS: QUEtiapine FUMARATE 25 MG TAB PO SCH ×2 (09:56→17:16)
[2022-11-10] MEDS: LOSARTAN 50MG TABLET PO SCH (12:00)
[2022-11-10] MEDS: DONEPEZIL 5 MG TAB PO SCH (19:54)
[2022-11-11 06:30] VITALS: BP 140/55; TEMP 97.7; O2SAT 96
[2022-11-11] MEDS: LABETALOL 100MG TAB PO SCH ×2 (09:00→20:13)
[2022-11-11 09:21] VITALS: BP 138/56
[2022-11-11] MEDS: SPIRONOLACTONE 25 MG TAB PO SCH ×2 (09:22→20:12)
[2022-11-11] MEDS: QUEtiapine FUMARATE 25 MG TAB PO SCH ×2 (09:22→18:58)
[2022-11-11] MEDS: LOSARTAN 50MG TABLET PO SCH (12:30)
[2022-11-11] MEDS: DONEPEZIL 5 MG TAB PO SCH (20:13)
[2022-11-12 06:00] VITALS: BP 163/60; TEMP 97.3; O2SAT 99
[2022-11-12] MEDS: LABETALOL 100MG TAB PO SCH ×2 (09:00→20:07)
[2022-11-12 09:33] VITALS: BP 148/58
[2022-11-12] MEDS: QUEtiapine FUMARATE 25 MG TAB PO SCH ×2 (09:33→17:18)
[2022-11-12] MEDS: SPIRONOLACTONE 25 MG TAB PO SCH ×2 (09:33→20:06)
[2022-11-12] MEDS: LOSARTAN 50MG TABLET PO SCH (11:44)
[2022-11-12] MEDS: DONEPEZIL 5 MG TAB PO SCH (20:06)
[2022-11-13 05:21] VITALS: BP 140/55; TEMP 97.3; O2SAT 99
[2022-11-13] MEDS: SPIRONOLACTONE 25 MG TAB PO SCH ×2 (08:25→19:50)
[2022-11-13] MEDS: QUEtiapine FUMARATE 25 MG TAB PO SCH ×2 (08:25→17:43)
[2022-11-13] MEDS: LABETALOL 100MG TAB PO SCH ×2 (08:27→19:46)
[2022-11-13] MEDS: LOSARTAN 50MG TABLET PO SCH (12:59)
[2022-11-13] MEDS: DONEPEZIL 5 MG TAB PO SCH (19:50)
[2022-11-14 06:00] VITALS: BP 160/63; TEMP 97.5; O2SAT 99
[2022-11-14] MEDS: QUEtiapine FUMARATE 25 MG TAB PO SCH ×2 (08:49→17:07)
[2022-11-14] MEDS: SPIRONOLACTONE 25 MG TAB PO SCH ×2 (08:49→20:09)
[2022-11-14] MEDS: LABETALOL 100MG TAB PO SCH ×2 (08:50→19:36)
[2022-11-14] MEDS: LOSARTAN 50MG TABLET PO SCH (11:29)
[2022-11-14] MEDS: DONEPEZIL 5 MG TAB PO SCH (20:09)
[2022-11-15 05:31] VITALS: BP 159/66; TEMP 97.7; O2SAT 96
[2022-11-15] MEDS: LABETALOL 100MG TAB PO SCH ×3 (09:43→22:12)
[2022-11-15] MEDS: SPIRONOLACTONE 25 MG TAB PO SCH ×3 (09:43→22:11)
[2022-11-15] MEDS: QUEtiapine FUMARATE 25 MG TAB PO SCH ×2 (09:43→17:07)
[2022-11-15] MEDS: LOSARTAN 50MG TABLET PO SCH ×2 (12:00→12:42)
[2022-11-15] MEDS: DONEPEZIL 5 MG TAB PO SCH ×2 (21:00→22:11)
[2022-11-16 05:20] VITALS: BP 134/50; TEMP 97.5; O2SAT 98
[2022-11-16] MEDS: LABETALOL 100MG TAB PO SCH ×2 (08:52→19:54)
[2022-11-16 08:57] VITALS: BP 135/50
[2022-11-16] MEDS: SPIRONOLACTONE 25 MG TAB PO SCH ×2 (08:57→19:55)
[2022-11-16] MEDS: QUEtiapine FUMARATE 25 MG TAB PO SCH ×2 (08:57→17:34)
[2022-11-16] MEDS: LOSARTAN 50MG TABLET PO SCH (12:00)
[2022-11-16 13:00] VITALS: BP 129/61
[2022-11-16] MEDS: DONEPEZIL 5 MG TAB PO SCH (19:55)
[2022-11-17 06:00] VITALS: BP 149/60; TEMP 98.1; O2SAT 98
[2022-11-17] MEDS ORDERED: LOSA50TA28 PO (07:36)
[2022-11-17] MEDS ORDERED: SENN-52 PO (07:36)
[2022-11-17] MEDS: QUEtiapine FUMARATE 25 MG TAB PO SCH (09:56)
[2022-11-17] MEDS: SPIRONOLACTONE 25 MG TAB PO SCH (09:56)
[2022-11-17] MEDS: LABETALOL 100MG TAB PO SCH (09:56)
[2022-11-17] MEDS ORDERED: OLANZapine 5 MG TAB PO PRN (10:55)
[2022-11-17 14:16] VITALS: BP 133/68
[2022-11-17] MEDS: LOSARTAN 50MG TABLET PO SCH (14:16)
[2022-11-17 14:24] VITALS: BP 133/68; TEMP 97.8; O2SAT 92
== END 2022-11-17 15:27 ==
LOC: EDBD 20:07 → M ED 20:07 → M ED INP 20:08 → ENRESERV 09-23 12:15 → M PCU 09-23 13:23 → M ED INP 09-24 12:35 → M PCU 09-24 13:19 → M MSPAV 09-26 15:32
PROVIDERS: ADMIT Internal Medicine; ATTEND Internal Medicine Nephrology
DX: F03.918 Unspecified dementia, unspecified severity, with other behavioral disturbance (principal); I10 Essential (primary) hypertension; E78.5 Hyperlipidemia, unspecified; Z79.899 Other long term (current) drug therapy
CPT/HCPCS: 36415; 70450; 71045; 80048; 80053; 80076; 81001; 82077; 82140; 82525; 82550; 82553; 82607; 83605; 83735; 84145; 84443; 84484; 85025; 87430; 87486; 87581; 87631; 87633; 87635; 87798; 93005; 93041; 94667; 94760; 96372; 96374; 96375; 99285; G0378; J1200; J1650